=== PATIENT | female | born 1990 | race Two or more races ===

== ENCOUNTER → 2018-10-05 | Emergency (ER) | payer OTHER ==
[~2018-10-05] VITALS: Ht 149.9 cm; Wt 85.3 kg
== END | disposition home or self-care (01) ==
LOC: ER 07:14
DX: K52.9 Noninfective gastroenteritis and colitis, unspecified (principal)

== ENCOUNTER 2022-05-30 09:56 | Emergency (ER) | payer OTHER ==
[~2022-05-30] VITALS: Ht 149.9 cm; Wt 86.6 kg
[2022-05-30] MEDS ORDERED: OSEL75CA PO (16:09)
== END 2022-05-30 17:06 | disposition home or self-care (01) ==
LOC: ER 09:56
DX: O98.512 Other viral diseases complicating pregnancy, second trimester (principal); Z3A.16 16 weeks gestation of pregnancy; J10.1 Influenza due to other identified influenza virus with other respiratory manifestations

== ENCOUNTER 2022-06-05 08:02 | Emergency (ER) | payer OTHER ==
[~2022-06-05] VITALS: Ht 149.9 cm; Wt 87.1 kg
[~2022-06-05 08:02] MED LIST: OSEL75CA PO
[2022-06-05] MEDS ORDERED: OBSTETRX ONE 38-1-22 (08:21)
== END 2022-06-05 15:26 | disposition home or self-care (01) ==
LOC: ER 08:02
DX: O26.892 Other specified pregnancy related conditions, second trimester (principal); Z3A.16 16 weeks gestation of pregnancy; R42 Dizziness and giddiness; R53.1 Weakness; Z20.822 Contact with and (suspected) exposure to COVID-19

== ENCOUNTER 2022-10-11 09:48 | Outpatient (CLI) | payer OTHER ==
[~2022-10-11 09:48] MED LIST changes: +OBSTETRX ONE 38-1-22
== END 2022-10-11 10:37 | disposition home or self-care (01) ==
LOC: NST 09:48
PROVIDERS: ATTEND Obstetrics & Gynecology Gynecology
DX: Z34.83 Encounter for supervision of other normal pregnancy, third trimester (principal)

== ENCOUNTER 2022-11-01 15:30 | Inpatient (IN) | payer OTHER ==
[~2022-11-01] VITALS: Ht 149.9 cm; Wt 101.2 kg
[2022-11-01] MEDS ORDERED: PRENATAL TABLE1 EAC4 PO (20:15)
== END 2022-11-03 13:09 | disposition home or self-care (01) | DRG 787 ==
LOC: O/R 15:30 → LDR 15:30 → SURG 15:30 → O/R 21:45 → SURG 22:41
PROVIDERS: ADMIT Obstetrics & Gynecology; ATTEND Obstetrics & Gynecology
PROC: 4A1HXCZ Monitoring of Products of Conception, Cardiac Rate, External Approach (ICD-10-PCS; 2022-11-01)
PROC: 10D00Z1 Extraction of Products of Conception, Low, Open Approach (ICD-10-PCS; principal; 2022-11-01 22:00)
DX: O34.211 Maternal care for low transverse scar from previous cesarean delivery (principal); O36.4XX0 Maternal care for intrauterine death, not applicable or unspecified; Z3A.37 37 weeks gestation of pregnancy; Z20.822 Contact with and (suspected) exposure to COVID-19; Z37.1 Single stillbirth

== ENCOUNTER 2023-02-25 08:50 | Outpatient (CLI) | payer OTHER ==
[~2023-02-25 08:50] MED LIST changes: +PRENATAL TABLE1 EAC4 PO
== END 2023-02-25 09:08 | disposition home or self-care (01) ==
LOC: SONOGRAMA 08:50
DX: R10.2 Pelvic and perineal pain (principal); N93.8 Other specified abnormal uterine and vaginal bleeding

== ENCOUNTER 2023-03-25 15:11 | Outpatient (CLI) | payer OTHER | END 2023-03-25 16:33 | disposition home or self-care (01) | LOC: PRENATAL 15:11 | PROVIDERS: ATTEND Obstetrics & Gynecology Maternal & Fetal Medicine | DX: O36.80X0 Pregnancy with inconclusive fetal viability, not applicable or unspecified (principal); O99.210 Obesity complicating pregnancy, unspecified trimester; Z3A.12 12 weeks gestation of pregnancy ==

== ENCOUNTER 2023-08-19 18:21 | Inpatient (IN) | payer OTHER ==
[~2023-08-19] VITALS: Ht 149.9 cm; Wt 108.4 kg
[2023-08-19] MEDS ORDERED: INSULIN LISPRO 1,000 UNIT/10 ML UNITS SUBCUTANEO ONE ×2 (19:10→21:18)
[2023-08-19] MEDS ORDERED: INDOMETHACIN 50 MG CAPSULE PO STA (19:14)
[2023-08-19 19:15] LABS: URINE APPEARANCE Turbid; URINE BILIRRUBIN Negative (NEGATIVE); URINE BLOOD Negative; URINE COLOR Yellow; URINE LEUKOCYTE Moderate; URINE NITRATE Negative; URINE PROTEIN Trace (NEGATIVE); URINE UROBILINOGEN 0.2 E.U./dl
[2023-08-19] MEDS ORDERED: RINGERS SOLUTION,LACTATED 1,000 ML IV SCH (19:15)
[2023-08-19 19:16] LABS: URINE RBC 4.4 uL (0.0-20.8); URINE WBC 202.5 uL (0.0-23.2)
[2023-08-19] MEDS ORDERED: INSULIN LISPRO 1,000 UNIT/10 ML UNITS SUBCUTANEO STA ×2 (19:18→21:48)
[2023-08-19 19:22] LABS: HEMATOCRIT 30.5 % (36.0-45.00); HEMOGLOBIN 10.3 g/dL (12.0-15.00); MEAN CELL VOLUME 73.3 fL (80.00-100.00); MEAN CORPUSCULAR HEMOGLOBIN 24.8 pg (27.00-32.0); MEAN CORPUSCULAR HGB CONC 33.9 g/dl (32.0-36.0); PLATELET COUNT 311 K/uL (150-450); RED BLOOD COUNT 4.16 M/uL (4.00-6.00)
[2023-08-19 19:24] LABS: RED CELL DISTRIBUTION WIDTH 16.7 % (11.5-14.5)
[2023-08-19 19:48] LABS: INR < 0.93; PARTIAL THROMBOPLASTIN TIME 30.2 SECONDS (22.0-34.0); PROTHROMBIN TIME 9.8 SECONDS (9.0-11.5)
[2023-08-19] MEDS ORDERED: NIFEDIPINE 30 MG TAB.SA.OSM PO SCH (20:00)
[2023-08-19 20:16] LABS: URINE BACTERIA > 9821.5 uL (0.0-1933); URINE EPITHELIAL CELLS > 201.7 uL (0.0-38.8); URINE GLUCOSE 100 MG/DL (NEGATIVE)
[2023-08-19] MEDS ORDERED: INSULIN NPH HUMAN ISOPHANE 1,000 UNITS/10 ML UNITS SUBCUTANEO ONE (23:06)
[2023-08-19] MEDS ORDERED: INSULIN NPH HUMAN ISOPHANE 1,000 UNITS/10 ML UNITS SUBCUTANEO STA (23:08)
[2023-08-20] MEDS ORDERED: INDOMETHACIN 50 MG CAPSULE PO SCH ×2 (02:00→21:00)
[2023-08-20] MEDS ORDERED: INSULIN NPH HUMAN ISOPHANE 1,000 UNITS/10 ML UNITS SUBCUTANEO SCH (08:00)
[2023-08-20] MEDS ORDERED: IRON FUM,PS/FOLIC/BCOMP,C NO.9 1 CAP CAPSULE PO STA (16:23)
[2023-08-20] MEDS ORDERED: IRON FUM,PS/FOLIC/BCOMP,C NO.9 1 CAP CAPSULE PO SCH (17:00)
[2023-08-20] MEDS ORDERED: INSULIN NPH HUMAN ISOPHANE 1,000 UNITS/10 ML UNITS SUBCUTANEO ONE ×2 (22:41→23:00)
[2023-08-21] MEDS ORDERED: INSULIN NPH HUMAN ISOPHANE 1,000 UNITS/10 ML UNITS SUBCUTANEO ONE (09:45)
[2023-08-21] MEDS ORDERED: INSULIN LISPRO 1,000 UNIT/10 ML UNITS SUBCUTANEO ONE (12:30)
[2023-08-21] MEDS ORDERED: IRON FUM,PS/FOLIC/BCOMP,C NO.9 1 CAP CAPSULE PO SCH (12:52)
[2023-08-21] MEDS ORDERED: NIFEDIPINE 30 MG TAB.SA.OSM PO SCH (13:00)
[2023-08-22] MEDS ORDERED: HUMULIN N100 UNIT/2 (14:15)
== END 2023-08-21 15:06 | disposition home or self-care (01) | DRG 832 ==
LOC: LDR 18:21
PROVIDERS: ADMIT Specialist; ATTEND Specialist
PROC: 4A1HXCZ Monitoring of Products of Conception, Cardiac Rate, External Approach (ICD-10-PCS; principal; 2023-08-21)
DX: O60.03 Preterm labor without delivery, third trimester (principal); O24.113 Pre-existing type 2 diabetes mellitus, in pregnancy, third trimester; O34.211 Maternal care for low transverse scar from previous cesarean delivery; E11.9 Type 2 diabetes mellitus without complications; Z3A.33 33 weeks gestation of pregnancy; Z20.822 Contact with and (suspected) exposure to COVID-19

== ENCOUNTER 2023-08-22 12:45 | Inpatient (IN) | payer OTHER ==
[~2023-08-22] VITALS: Ht 149.9 cm; Wt 109.8 kg
[2023-08-22] MEDS ORDERED: IRON FUM,PS/FOLIC/BCOMP,C NO.9 1 CAP CAPSULE PO SCH (13:53)
[2023-08-22] MEDS ORDERED: SOD FERRIC GLUC COMPLX/SUCROSE 62.5 MG/5 ML AMPUL IV SCH (14:00)
[2023-08-22] MEDS ORDERED: RINGERS SOLUTION,LACTATED 1,000 ML IV SCH (14:00)
[2023-08-22] MEDS ORDERED: HUMULIN N100 UNIT/2 (14:15)
[2023-08-22 14:48] LABS: URINE APPEARANCE Cloudy; URINE BILIRRUBIN Small (NEGATIVE); URINE BLOOD Negative; URINE COLOR Dark Yellow; URINE GLUCOSE Negative (NEGATIVE); URINE LEUKOCYTE Small; URINE NITRATE Negative; URINE PROTEIN Trace (NEGATIVE)
[2023-08-22 14:49] LABS: URINE BACTERIA 4146.6 uL (0.0-1933); URINE EPITHELIAL CELLS 196.3 uL (0.0-38.8); URINE RBC 3.7 uL (0.0-20.8); URINE WBC 63.9 uL (0.0-23.2)
[2023-08-22 14:55] LABS: ALT/SGPT 16 U/L (12-78); AST/SGOT 14 U/L (15-37); HEMATOCRIT 29.4 % (36.0-45.00); MEAN CELL VOLUME 73.4 fL (80.00-100.00); MEAN CORPUSCULAR HGB CONC 34.1 g/dl (32.0-36.0); PLATELET COUNT 291 K/uL (150-450); RED BLOOD COUNT 4.01 M/uL (4.00-6.00); RED CELL DISTRIBUTION WIDTH 17.1 % (11.5-14.5)
[2023-08-22 15:08] LABS: PROTHROMBIN TIME 10.2 SECONDS (9.0-11.5)
[2023-08-22 15:09] LABS: INR 0.97; PARTIAL THROMBOPLASTIN TIME 30.2 SECONDS (22.0-34.0)
[2023-08-22 15:13] LABS: URINE EPITHELIAL CELLS 0-4 /HPF
[2023-08-22] MEDS ORDERED: NIFEDIPINE 30 MG TAB.SA.OSM PO SCH (18:00)
[2023-08-22] MEDS ORDERED: INSULIN NPH HUMAN ISOPHANE 1,000 UNITS/10 ML UNITS SUBCUTANEO SCH ×2 (21:45→22:00)
[2023-08-23 15:29] LABS: CREATININE URINE 67.4 MG/DL
[2023-08-23 15:30] LABS: URINE PROT QUANT 24 HR 130.5 MG/24HR (42-225)
[2023-08-23 15:56] LABS: CREATINE CLEARANCE 107.9 ML/MIN (97-137); CREATININE SERUM 0.63 mg/dL (0.6-1.0)
[2023-08-23] MEDS ORDERED: INSULIN NPH HUMAN ISOPHANE 1,000 UNITS/10 ML UNITS SUBCUTANEO SCH (21:00)
[2023-08-24] MEDS ORDERED: INSULIN NPH HUMAN ISOPHANE 1,000 UNITS/10 ML UNITS SUBCUTANEO SCH (07:30)
[2023-08-24] MEDS ORDERED: NIFEDIPINE 30 MG TAB.SA.OSM PO SCH (14:30)
[2023-08-24] MEDS ORDERED: IRON FUM,PS/FOLIC/BCOMP,C NO.9 1 CAP CAPSULE PO SCH (17:00)
== END 2023-08-24 14:30 | disposition home or self-care (01) | DRG 832 ==
LOC: LDR 12:45
PROVIDERS: ADMIT Specialist; ATTEND Specialist
PROC: 4A1HXCZ Monitoring of Products of Conception, Cardiac Rate, External Approach (ICD-10-PCS; principal; 2023-08-22)
PROC: BY4FZZZ Ultrasonography of Third Trimester, Single Fetus (ICD-10-PCS; 2023-08-23)
DX: O60.03 Preterm labor without delivery, third trimester (principal); O24.113 Pre-existing type 2 diabetes mellitus, in pregnancy, third trimester; O26.843 Uterine size-date discrepancy, third trimester; O36.8130 Decreased fetal movements, third trimester, not applicable or unspecified; O13.3 Gestational [pregnancy-induced] hypertension without significant proteinuria, third trimester; O99.213 Obesity complicating pregnancy, third trimester; E66.9 Obesity, unspecified; Z20.822 Contact with and (suspected) exposure to COVID-19; Z3A.33 33 weeks gestation of pregnancy; O34.211 Maternal care for low transverse scar from previous cesarean delivery; O11.9 Pre-existing hypertension with pre-eclampsia, unspecified trimester; Z79.4 Long term (current) use of insulin

== ENCOUNTER 2023-09-12 13:20 | Inpatient (IN) | payer OTHER ==
[~2023-09-12] VITALS: Ht 149.9 cm; Wt 3.6 kg
[~2023-09-12 13:20] MED LIST changes: +HUMULIN N100 UNIT/2
[2023-09-12 14:28] LABS: HEMATOCRIT 33.9 % (36.0-45.00); MEAN CELL VOLUME 76.5 fL (80.00-100.00); MEAN CORPUSCULAR HEMOGLOBIN 26.1 pg (27.00-32.0); MEAN CORPUSCULAR HGB CONC 34.2 g/dl (32.0-36.0); PLATELET COUNT 288 K/uL (150-450); RED BLOOD COUNT 4.43 M/uL (4.00-6.00)
[2023-09-12 14:29] LABS: HEMOGLOBIN 11.6 g/dL (12.0-15.00); RED CELL DISTRIBUTION WIDTH 20.6 % (11.5-14.5)
[2023-09-12] MEDS ORDERED: RINGERS SOLUTION,LACTATED 1,000 ML IV SCH (14:30)
[2023-09-12] MEDS ORDERED: CEFAZOLIN SODIUM 1,000 MG VIAL IV SCH (14:30)
[2023-09-12 14:44] LABS: URINE APPEARANCE Cloudy; URINE BILIRRUBIN Negative (NEGATIVE); URINE BLOOD Negative; URINE COLOR Dark Yellow; URINE GLUCOSE Negative (NEGATIVE); URINE LEUKOCYTE Small; URINE NITRATE Negative; URINE PROTEIN Trace (NEGATIVE); URINE UROBILINOGEN 0.2 E.U./dl
[2023-09-12 14:45] LABS: INR 0.95; PARTIAL THROMBOPLASTIN TIME 29.6 SECONDS (22.0-34.0); URINE BACTERIA 3091.9 uL (0.0-1933); URINE EPITHELIAL CELLS 77.4 uL (0.0-38.8); URINE RBC 3.3 uL (0.0-20.8)
[2023-09-12 14:56] LABS: ALBUMIN 2.4 gm/dL (3.4-5.0); BILIRUBIN TOTAL 0.3 mg/dL (0.3-1.2); CALCIUM 8.3 mg/dL (8.5-10.1); CREATININE SERUM 0.53 mg/dL (0.55-1.02); GFR 132.05; GLOBULINA 4.5 G/DL (2.4-3.5); POTASSIUM 3.79 mEq/L (3.5-5.1); TOTAL PROTEIN 6.9 gm/dL (6.4-8.2)
[2023-09-12] MEDS ORDERED: ACETAMINOPHEN 500 MG GEL..CAP PO PRN (15:15)
[2023-09-12] MEDS ORDERED: NIFEDIPINE 30 MG TAB.SA.OSM PO SCH (16:00)
[2023-09-12] MEDS ORDERED: OXYTOCIN 10 UNITS/ML VIAL ONE (18:53)
[2023-09-12] MEDS ORDERED: ERYTHROMYCIN BASE 3.5 GM OINT...G. OP ONE (18:53)
[2023-09-12] MEDS ORDERED: OXYTOCIN 10 UNITS/ML VIAL IV ONE (20:30)
[2023-09-12] MEDS ORDERED: ERYTHROMYCIN BASE 1 GM TUBE OP ONE (20:30)
[2023-09-12] MEDS ORDERED: CARBOPROST TROMETHAMINE 250 MCG/ML AMPUL IM ONE (20:30)
[2023-09-12] MEDS ORDERED: PROMETHAZINE HCL 25 MG/ML AMPUL IV SCH (21:45)
[2023-09-12] MEDS ORDERED: MEPERIDINE HCL/PF 50 MG/ML VIAL IM SCH (21:45)
[2023-09-12] MEDS ORDERED: PROMETHAZINE HCL 50 MG/ML AMPUL ONE (23:59)
[2023-09-13] MEDS ORDERED: CEFAZOLIN SODIUM 1,000 MG VIAL IV SCH
[2023-09-13] MEDS ORDERED: CHLORHEXIDINE GLUCONATE 120 ML BOTTLE TOP ONE (01:58)
[2023-09-13 07:10] LABS: HEMOGLOBIN 10.6 g/dL (12.0-15.00); MEAN CELL VOLUME 75.6 fL (80.00-100.00); MEAN CORPUSCULAR HEMOGLOBIN 25.9 pg (27.00-32.0); MEAN CORPUSCULAR HGB CONC 34.3 g/dl (32.0-36.0); PLATELET COUNT 238 K/uL (150-450); RED CELL DISTRIBUTION WIDTH 20.9 % (11.5-14.5)
[2023-09-13] MEDS ORDERED: MEPERIDINE HCL/PF 50 MG,MEPERIDINE HCL/PF 25 MG IV SCH (08:00)
[2023-09-13] MEDS ORDERED: OxyCODONE HCL/APAP UD (PERCOCET) PO SCH ×2 (08:16→14:00)
[2023-09-13] MEDS ORDERED: PROMETHAZINE HCL 25 MG/ML AMPUL IV SCH (12:00)
[2023-09-13] MEDS ORDERED: INSULIN LISPRO 300 UNIT/3 ML UNITS SUBCUTANEO ONE (21:45)
== END 2023-09-14 13:46 | disposition home or self-care (01) | DRG 783 ==
LOC: LDR 13:20 → OB/GYN 22:30
PROVIDERS: ADMIT Specialist; ATTEND Specialist
PROC: 0UB70ZZ Excision of Bilateral Fallopian Tubes, Open Approach (ICD-10-PCS; 2023-09-12)
PROC: 4A1HXCZ Monitoring of Products of Conception, Cardiac Rate, External Approach (ICD-10-PCS; 2023-09-12)
PROC: 10D00Z1 Extraction of Products of Conception, Low, Open Approach (ICD-10-PCS; principal; 2023-09-12 20:15)
DX: O36.8130 Decreased fetal movements, third trimester, not applicable or unspecified (principal); O60.14X0 Preterm labor third trimester with preterm delivery third trimester, not applicable or unspecified; O10.92 Unspecified pre-existing hypertension complicating childbirth; O34.211 Maternal care for low transverse scar from previous cesarean delivery; O24.424 Gestational diabetes mellitus in childbirth, insulin controlled; Z3A.36 36 weeks gestation of pregnancy; Z37.0 Single live birth; Z30.2 Encounter for sterilization; Z20.822 Contact with and (suspected) exposure to COVID-19